=== PATIENT | male | born 1960 | race African-American/Black ===

== ENCOUNTER 2018-12-14 19:38 | Emergency (ER) | payer SELFPAY ==
[~2018-12-14] VITALS: Ht 172.7 cm; Wt 72.7 kg
[2018-12-14] MEDS ORDERED: AMLO1ORA PO (20:41)
[2018-12-14 21:54] VITALS: BP 148/89
== END 2018-12-14 21:55 | disposition home or self-care (01) ==
LOC: EMS 19:39
DX: F41.9 Anxiety disorder, unspecified (principal); I10 Essential (primary) hypertension